=== PATIENT | female | born 1960 | race Caucasian/White ===

== ENCOUNTER 2021-12-06 06:54 | Day surgery (SDC) | payer MEDICARE, MEDICAID ==
[~2021-12-06] VITALS: Ht 170.2 cm; Wt 114.7 kg
[2021-12-06] VITALS (12 sets, daily range): BP systolic 94–129; BP diastolic 37–76
[2021-12-06] MEDS ORDERED: diphenhydrAMINE 25mg capsule PO PRN (07:20)
[2021-12-06] MEDS ORDERED: LORazepam 0.5 MG tablet PO PRN (07:20)
[2021-12-06] MEDS ORDERED: normal saline 1,000 ML IV SCH (07:20)
[2021-12-06] MEDS ORDERED: nitroGLYCERIN 0.4mg SUBLingual tab SL PRN (07:20)
[2021-12-06] MEDS ORDERED: MESSAGE TO PHARMACY PO ONE (07:25)
[2021-12-06] MEDS ORDERED: DEXTROSE 15 GM of carb/4 tabs (each vial/BOTTLE has 4 tablets) PO PRN ×2 (07:25)
[2021-12-06] MEDS ORDERED: insulin Lispro (HumaLOG) vial - multi-dose SQ SCH (07:25)
[2021-12-06] MEDS ORDERED: dextrose 50%-water 50ml dispensing syringe IV PRN ×2 (07:25)
[2021-12-06] MEDS ORDERED: glucagon, human recombinant 1mg kit SUBCUT PRN (07:25)
[2021-12-06] MEDS ORDERED: GABA600T13 PO (07:51)
[2021-12-06] MEDS ORDERED: BACL20TA8 (07:51)
[2021-12-06] MEDS ORDERED: NOVLG SQ (07:51)
[2021-12-06] MEDS ORDERED: OMEP20CA16 PO (07:51)
[2021-12-06] MEDS ORDERED: ATOR40TA72 PO (07:51)
[2021-12-06] MEDS ORDERED: LEVO100T9 (07:51)
[2021-12-06] MEDS ORDERED: INSU100V9 SQ (07:51)
[2021-12-06] MEDS ORDERED: EMPA1TAB (07:51)
[2021-12-06] MEDS ORDERED: KRATOM PO (07:54)
[2021-12-06] MEDS ORDERED: ACET-3174 (07:54)
[2021-12-06] MEDS ORDERED: MAGN400C PO (07:54)
[2021-12-06] MEDS ORDERED: CBD (07:54)
[2021-12-06] MEDS ORDERED: LIDOCAINE 1% w/preservative (10 MG/ML) inj. 10mL VIAL ONE (10:37)
[2021-12-06] MEDS ORDERED: fentaNYL/PF 50MCG/1 ML 2ML syringe ONE (10:38)
[2021-12-06] MEDS ORDERED: midazolam 1 mg/ML 2ml injection ONE ×2 (10:38→11:42)
[2021-12-06] MEDS ORDERED: iohexol 350 MG/ML 50ML vial IV ONE (10:38)
[2021-12-06] MEDS ORDERED: iohexol 350MG/ML 100ml bottle IV ONE (10:38)
[2021-12-06] MEDS ORDERED: proCHLORperazine 10 MG/2 ml inj IV PRN (12:20)
[2021-12-06] MEDS ORDERED: HYDROcodone/acetaminophen 5mg/325mg tablet PO PRN (12:20)
[2021-12-06] MEDS ORDERED: HYDROcodone/acetaminophen 10/325mg tab PO PRN (12:20)
[2021-12-06] MEDS ORDERED: normal saline 1000ml 1,000 ML IV SCH (12:20)
[2021-12-06] MEDS ORDERED: ondansetron/PF 4mg/2ml inj IV PRN (12:20)
[2021-12-06] MEDS ORDERED: OXAZEpam 15mg capsule PO PRN (12:20)
[2021-12-06] MEDS ORDERED: insulin glargine (Lantus) pen - multi-dose SQ SCH (21:00)
== END 2021-12-06 17:50 | disposition home or self-care (01) ==
LOC: SSTAY O 06:54
PROVIDERS: ATTEND Internal Medicine Cardiovascular Disease
DX: R94.39 Abnormal result of other cardiovascular function study (principal); I25.10 Atherosclerotic heart disease of native coronary artery without angina pectoris; E11.40 Type 2 diabetes mellitus with diabetic neuropathy, unspecified; F41.9 Anxiety disorder, unspecified; E78.5 Hyperlipidemia, unspecified; Z79.899 Other long term (current) drug therapy; Z96.611 Presence of right artificial shoulder joint; Z96.612 Presence of left artificial shoulder joint; Z87.891 Personal history of nicotine dependence
CPT/HCPCS: 82948; 93458; 99152; 99153; C1760; C1769; J1644; J1815; J2250; J3010; J7030; Q0163; Q9967; A4620; A6258